=== PATIENT | male | born 1965 | race Caucasian/White ===

== ENCOUNTER 2021-05-21 05:46 | Emergency (ER) | payer SELFPAY ==
[~2021-05-21] VITALS: Ht 170.2 cm; Wt 84.0 kg
[2021-05-21] MEDS ORDERED: ACETAMINOPHEN 325MG TABLET PO ONE (06:45)
[2021-05-21 07:30] VITALS: BP 135/76
[2021-05-21] MEDS ORDERED: IBUP-2028 PO (08:18)
== END 2021-05-21 08:26 | disposition home or self-care (01) ==
LOC: ER 05:46
DX: R51.9 Headache, unspecified (principal); M54.2 Cervicalgia; R55 Syncope and collapse; M25.552 Pain in left hip; G89.11 Acute pain due to trauma; V49.49XA Driver injured in collision with other motor vehicles in traffic accident, initial encounter; Y93.89 Activity, other specified; Y92.488 Other paved roadways as the place of occurrence of the external cause
CPT/HCPCS: 99284